=== PATIENT | male | born 1950 | race Asian ===

== ENCOUNTER 2021-05-22 13:38 | Outpatient (CLI) | payer BC | END 2021-05-22 13:39 | disposition home or self-care (01) | LOC: SCSRAD 13:38 | PROVIDERS: ATTEND Psychiatry & Neurology Neurology | DX: M50.223 Other cervical disc displacement at C6-C7 level (principal); M47.812 Spondylosis without myelopathy or radiculopathy, cervical region | CPT/HCPCS: 72040 ==